=== PATIENT | female | born 1955 | race Caucasian/White ===

== ENCOUNTER 2018-04-09 09:30 | Emergency (ER) | payer OTHER ==
[2018-04-09 09:43] VITALS: BP 140/57; PULSE 81; TEMP 97.9; BMI 35.2
--- NOTE | 2018-04-09 11:00 | PDOC ---
History of Present Illness - General Chief Complaint: Eye Problem Stated Complaint: EYE PROBLEM Time Seen by Provider: 04/09/18 10:33 History Source: Patient Exam Limitations: No Limitations - History of Present Illness Initial Comments: CHIEF COMPLAINT: 63 y/o afebrile female c/o seeing a spot in her left eye since last night. HISTORY OF PRESENT ILLNESS: The patient denies any trauma to her eye, sensation of something being stuck in her eye. she denies sensation of current dropping, pain or pressure to her eye. She states her vision is normal. She does normally wear glasses. Vital signs on arrival are within normal limits. REVIEW OF SYSTEMS: GENERAL/CONSTITUTIONAL: No fever/chills. No weakness. No weight change. HEAD, EYES, EARS, NOSE AND THROAT: +seeing a spot in her left eye. No change in vision. No ear pain or discharge. No sore throat. PHYSICAL EXAM: GENERAL: The patient is awake, alert, and fully oriented, in no acute distress. HEAD: Normal with no signs of trauma. ENT: Pupils equal, round and reactive to light, extraocular movements intact, sclera anicteric, conjunctiva clear. No proptosis. No ptosis. FLUORESCEIN STAIN: ulceration seen to left eye at approximately 6 o'clock position. No foreign bodies noted. SNELLEN: 20/20 vision (R), (L) and both with glasses on Past History - Past Medical History Allergies/Adverse Reactions: Allergies Allergy/AdvReac Type Severity Reaction Status Date / Time No Known Allergies Allergy Verified 04/09/18 09:43 Home Medications: Ambulatory Orders Erythromycin 0.5% Eye Ointment [Erythromycin 0.5% Eye Ointment -] 1 applic OS TID #1 tube 04/09/18 COPD: No Hypercholesterolemia: Yes - Suicide/Smoking/Psychosocial Hx Smoking Status: Yes Smoking History: Never smoked Have you smoked in the past 12 months: No Number of Cigarettes Smoked Daily: 5 Information on smoking cessation initiated: No Hx Alcohol Use: No Drug/Substance Use Hx: No Substance Use Type: None *Physical Exam - Vital Signs Last Vital Signs Temp Pulse Resp BP Pulse Ox 97.9 F 81 18 140/57 L 04/09/18 09:40 04/09/18 09:40 04/09/18 09:40 04/09/18 09:40 Medical Decision Making - Medical Decision Making A/P: 63 y/o female with ulceration to left cornea. Plan is to discharge to home with rx for erythro ointment and suggest f/u with her eye doctor on wednesday. Also provided a referral to an eye doctor. Instructed her to return to the ER with any worsening or concerning symptoms. The patient verbalizes understanding of all instructions, has no further questions and is awaiting discharge. *DC/Admit/Observation/Transfer Diagnosis at time of Disposition: Corneal ulceration Qualifiers: Laterality: left Qualified Code(s): H16.002 - Unspecified corneal ulcer, left eye - Discharge Dispostion Disposition: HOME Condition at time of disposition: Good - Referrals Referrals: Emilie Centeno MD [Primary Care Provider] - Fernanda Ward MD [Staff Physician] - - Patient Instructions Printed Discharge Instructions: DI for Corneal Ulcer Additional Instructions: Discharge Instructions: -You have an ulceration on your left eye, which is most likely causing you to feel like you are seeing something in your left eye -A prescription for an eye ointment has been sent to your pharmacy; please take for 1 week -Do not use contact lenses until you are seen by your eye doctor -Call your eye doctor or the eye doctor referred to you on Wednesday -Return to the ER with any worsening or concerning symptoms - Post Discharge Activity
== END 2018-04-09 11:13 | disposition home or self-care (01) ==
LOC: JERFT 09:30
PROC: 4A07X0Z Measurement of Visual Acuity, External Approach (ICD-10-PCS; principal; 2018-04-09)
DX: H16.002 Unspecified corneal ulcer, left eye (principal); E78.00 Pure hypercholesterolemia, unspecified
CPT/HCPCS: 99281-25

== ENCOUNTER 2018-10-08 09:38 | Emergency (ER) | payer OTHER ==
[2018-10-08 09:48] VITALS: BP 137/56; PULSE 69; TEMP 98.4; BMI 35.3
--- NOTE | 2018-10-08 10:29 | PDOC ---
History of Present Illness - General Chief Complaint: Ear Problem Stated Complaint: LT EAR PAIN Time Seen by Provider: 10/08/18 09:55 History Source: Patient Exam Limitations: No Limitations Past History - Travel Traveled outside of the country in the last 30 days: No Close contact w/someone who was outside of country & ill: No - Past Medical History Allergies/Adverse Reactions: Allergies Allergy/AdvReac Type Severity Reaction Status Date / Time No Known Allergies Allergy Verified 04/09/18 09:43 Home Medications: Ambulatory Orders Fluticasone Prop 0.05% Nasal [Flonase -] 1 - 2 spray NS DAILY #1 spray.pump COPD: No Hypercholesterolemia: Yes - Immunization History Immunization Up to Date: No - Suicide/Smoking/Psychosocial Hx Smoking Status: Yes Smoking History: Never smoked Have you smoked in the past 12 months: No Number of Cigarettes Smoked Daily: 5 Information on smoking cessation initiated: No Hx Alcohol Use: No Drug/Substance Use Hx: No Substance Use Type: None Review of Systems - Review of Systems Able to Perform ROS?: Yes Comments:: 10/08/18 10:23 CONSTITUTIONAL: Absent: fever, chills, diaphoresis, generalized weakness, malaise, loss of appetite HEENT: Present: L ear pain Absent: rhinorrhea, nasal congestion, throat pain, throat swelling, difficulty swallowing, mouth swelling, ear pain, eye pain, visual Changes SKIN: Absent: rash, itching, pallor NEUROLOGIC: Absent: headache, focal weakness or paresthesias, dizziness, unsteady gait, seizure, mental status changes, bladder or bowel incontinence PSYCHIATRIC: Absent: anxiety, depression, suicidal or homicidal ideation, hallucinations. Is the patient limited Togolese proficient: No *Physical Exam - Vital Signs Last Vital Signs Temp Pulse Resp BP Pulse Ox 98.4 F 69 16 137/56 L 100 10/08/18 09:43 10/08/18 09:43 10/08/18 09:43 10/08/18 09:43 10/08/18 09:43 *DC/Admit/Observation/Transfer Diagnosis at time of Disposition: Eustachian tube disorder Qualifiers: Laterality: left Qualified Code(s): H69.92 - Unspecified Eustachian tube disorder, left ear - Discharge Dispostion Disposition: HOME Condition at time of disposition: Stable Decision to Admit order: No - Referrals Referrals: Emilie Centeno MD [Primary Care Provider] - Quinn Macario MD [Staff Physician] - - Patient Instructions Printed Discharge Instructions: DI for Eustachian Tube Dysfunction-Adult Additional Instructions: You were evaluated for the popping in your ears today Use the flonase twice a day Continue taking the pseudaphed as directed Follow up with ENT if your symptoms do not resolve. A referral has been provided to you Return to the ER for any new or worsening symptoms - Post Discharge Activity
== END 2018-10-08 10:37 | disposition home or self-care (01) ==
LOC: JERFT 09:38 → JER 09:38 → JERFT 10:37
DX: H69.92 Unspecified Eustachian tube disorder, left ear (principal)
CPT/HCPCS: 99281-25

== ENCOUNTER 2020-12-21 11:04 | Emergency (ER) | payer OTHER ==
[2020-12-21 11:10] VITALS: BP 140/62; PULSE 65; TEMP 98.4; BMI 33.3
== END 2020-12-21 12:08 | disposition home or self-care (01) ==
LOC: JERFT 11:04
DX: L24.89 Irritant contact dermatitis due to other agents (principal)
CPT/HCPCS: 99283-25